=== PATIENT | male | born 1950 | race Caucasian/White ===

== ENCOUNTER → 2016-09-08 | Day surgery (SDC) | payer MEDICAID ==
[~2016-09-08] MED LIST: ACIDOPHILUS PO; BLOOD PRESSURE MED; CEPHALEXIN500 M1 PO; GLUCAGON EMERGEN1 M1 IM; LANTUS100 U/ML; LANTUS100 U/ML SQ; LISINOPRIL5 MG PO; MIRALAX17 GM/DOSE PO; NOVOLIN R100 U/ML; NOVOLOG 100U100 U/M1; NOVOLOG 100U100 U/M1 SC; NOVOLOG 100U100 U/ML SC; PREDNISONE20 MG PO; PRINIVIL5 MG PO; PROVENTIL0.09 MG/A1 IH; TRESIBA FL100 UNIT/1 SQ; TRIAMCINOLONE A15 GM TP; VIBRAMYCIN100 MG PO; WARFARIN2 MG
== END ==
LOC: MSO 14:20
DX: K30 Functional dyspepsia (principal); R68.81 Early satiety; Z79.01 Long term (current) use of anticoagulants; Z86.711 Personal history of pulmonary embolism; J44.9 Chronic obstructive pulmonary disease, unspecified; J45.909 Unspecified asthma, uncomplicated; F17.210 Nicotine dependence, cigarettes, uncomplicated; K21.9 Gastro-esophageal reflux disease without esophagitis; K29.70 Gastritis, unspecified, without bleeding; B37.81 Candidal esophagitis
CPT/HCPCS: 00740; J7030

== ENCOUNTER 2016-11-13 12:40 | Emergency (ER) | payer MEDICAID ==
[~2016-11-13 12:40] MED LIST changes: -GLUCAGON EMERGEN1 M1 IM; -LISINOPRIL5 MG PO; -NOVOLOG 100U100 U/ML SC
[2016-11-13] MEDS ORDERED: NOVOLOG 100U100 U/ML SC (13:28)
[2016-11-13] MEDS ORDERED: LISINOPRIL5 MG PO (13:29)
[2016-11-13] MEDS ORDERED: GLUCAGON EMERGEN1 M1 IM (13:30)
== END 2016-11-13 17:26 | disposition home or self-care (01) ==
LOC: ED 12:40
DX: E11.649 Type 2 diabetes mellitus with hypoglycemia without coma (principal); Z79.4 Long term (current) use of insulin

== ENCOUNTER → 2017-04-25 | Outpatient (CLI) | payer MEDICAID ==
[2016-11-13 17:26] VITALS: BP 140/60
[~2017-04-25] MED LIST changes: +GLUCAGON EMERGEN1 M1 IM; +LISINOPRIL5 MG PO; +NOVOLOG 100U100 U/ML SC
== END ==
LOC: LAB 09:03
DX: Z79.899 Other long term (current) drug therapy (principal)

== ENCOUNTER 2017-07-02 09:00 | Outpatient (RCR) | payer MEDICAID ==
[2016-11-13 17:26] VITALS: BP 140/60
== END 2017-07-02 09:30 | disposition still patient (30) ==
LOC: PT 09:00
DX: M54.5 Low back pain (principal)
CPT/HCPCS: G0283-GP

== ENCOUNTER 2017-07-25 13:01 | Emergency (ER) | payer MEDICAID ==
[~2017-07-25] VITALS: Wt 47.7 kg
[2017-07-25 13:36] LABS: HEMATOCRIT 40.5 % (42.0-52.0); HEMOGLOBIN 14.1 g/dL (13.5-18.0); MEAN CELL VOLUME 88 fl (78-100); MEAN CORPUSCULAR HEMOGLOBIN 31 pg (27-31); MEAN CORPUSCULAR HGB CONC 35 g/dL (33-37); PLATELET COUNT 197 K/mm3 (130-400); RED BLOOD COUNT 4.59 M/mm3 (4.20-5.60); RED CELL DISTRIBUTION WIDTH 15.1 % (11.5-14.5)
[2017-07-25 13:44] LABS: PROTHROMBIN TIME 21.8 SECONDS (9.0-12.0)
[2017-07-25 13:46] LABS: ALBUMIN 4.3 g/dL (3.5-5.0); BUN/CREATININE RATIO 22.8 (6.0-26.0); CALCIUM 9.3 mg/dL (8.4-10.2); POTASSIUM 4.1 mmol/L (3.6-5.0); TOTAL BILIRUBIN 0.7 mg/dL (0.2-1.3); TOTAL PROTEIN 7.1 g/dL (6.3-8.2)
[2017-07-25 13:57] LABS: BAND 9 % (0-10); LYMPHOCYTE 8 % (20-51); MONOCYTE 7 % (3-10); NEUTROPHILS 76 % (42-75)
[2017-07-25 16:21] VITALS: BP 127/64
== END 2017-07-25 16:22 | disposition home or self-care (01) ==
LOC: ED 13:01
PROVIDERS: Family Medicine
DX: S06.0X9A Concussion with loss of consciousness of unspecified duration, initial encounter (principal); E10.649 Type 1 diabetes mellitus with hypoglycemia without coma; E10.42 Type 1 diabetes mellitus with diabetic polyneuropathy; Z79.4 Long term (current) use of insulin; S00.81XA Abrasion of other part of head, initial encounter; W19.XXXA Unspecified fall, initial encounter; S00.83XA Contusion of other part of head, initial encounter; Z86.718 Personal history of other venous thrombosis and embolism; Z86.711 Personal history of pulmonary embolism; Z79.01 Long term (current) use of anticoagulants; F17.200 Nicotine dependence, unspecified, uncomplicated

== ENCOUNTER 2018-03-08 16:48 | Emergency (ER) | payer MEDICAID ==
[2018-03-08 18:00] LABS: HEMATOCRIT 44.8 % (42.0-52.0); HEMOGLOBIN 14.7 g/dL (13.5-18.0); MEAN CELL VOLUME 79 fl (78-100); MEAN CORPUSCULAR HEMOGLOBIN 26 pg (27-31); MEAN CORPUSCULAR HGB CONC 33 g/dL (33-37); MEAN PLATELET VOLUME 8.1 fl (7.4-10.4); PLATELET COUNT 215 K/mm3 (130-400); RED BLOOD COUNT 5.65 M/mm3 (4.20-5.60); RED CELL DISTRIBUTION WIDTH 14.9 % (11.5-14.5); WHITE BLOOD COUNT 5.6 K/mm3 (4.8-10.8)
[2018-03-08 18:05] LABS: ALBUMIN 4.3 g/dL (3.5-5.0); BUN/CREATININE RATIO 14.6 (6.0-26.0); POTASSIUM 3.5 mmol/L (3.6-5.0); TOTAL BILIRUBIN 0.6 mg/dL (0.2-1.3); TOTAL PROTEIN 8.3 g/dL (6.3-8.2)
[2018-03-08 18:37] LABS: LYMPHOCYTE 28 % (20-51); MONOCYTE 12 % (3-10); NEUTROPHILS 60 % (42-75)
[2018-03-08 18:39] LABS: PH-URINE 5.5 (5.0 - 8.0); URINE APPEARANCE CLEAR; URINE BILIRUBIN NEGATIVE (NEGATIVE); URINE BLOOD NEGATIVE (NEGATIVE); URINE COLOR YELLOW; URINE GLUCOSE NEGATIVE (NEGATIVE); URINE KETONE 1+ (NEGATIVE); URINE LEUKOCYTE ESTERASE NEGATIVE (NEGATIVE); URINE NITRATE NEGATIVE (NEGATIVE); URINE PROTEIN(semi-quant) TRACE mg/dL (NEGATIVE); URINE UROBILINOGEN NORMAL (NORMAL)
[2018-03-08 18:40] LABS: URINE WBC 0-1 /hpf (0-3)
[2018-03-08 20:56] LABS: PROTHROMBIN TIME 47.8 SECONDS (9.0-12.0)
[2018-03-08 23:28] VITALS: BP 156/67
== END 2018-03-08 23:28 | disposition home or self-care (01) ==
LOC: ED 16:48
PROVIDERS: Nurse Practitioner Family
DX: K59.00 Constipation, unspecified (principal); M54.6 Pain in thoracic spine; E10.9 Type 1 diabetes mellitus without complications; Z79.4 Long term (current) use of insulin; I10 Essential (primary) hypertension; J44.9 Chronic obstructive pulmonary disease, unspecified; F17.210 Nicotine dependence, cigarettes, uncomplicated; K21.9 Gastro-esophageal reflux disease without esophagitis; Z86.718 Personal history of other venous thrombosis and embolism; Z79.01 Long term (current) use of anticoagulants
CPT/HCPCS: J2270; J2405; J7030

== ENCOUNTER → 2018-03-31 | Outpatient (CLI) | payer MEDICAID ==
[2018-03-08 23:28] VITALS: BP 156/67
== END ==
LOC: RAD 09:59
DX: Z13.6 Encounter for screening for cardiovascular disorders (principal); I70.0 Atherosclerosis of aorta

== ENCOUNTER 2018-07-01 14:48 | Emergency (ER) | payer MEDICAID ==
[~2018-07-01] VITALS: Ht 165.1 cm; Wt 45.9 kg
[2018-07-01 15:21] LABS: HEMATOCRIT 44.4 % (42.0-52.0); HEMOGLOBIN 14.6 g/dL (13.5-18.0); LYMPH# 1.1 (1.50-4.00); MEAN CELL VOLUME 78 fl (78-100); MEAN CORPUSCULAR HEMOGLOBIN 26 pg (27-31); MEAN CORPUSCULAR HGB CONC 33 g/dL (33-37); MONO # 0.6 (0.20-0.80); NEU # 3.7 (1.40-6.50); PLATELET COUNT 282 K/mm3 (130-400); RED BLOOD COUNT 5.73 M/mm3 (4.20-5.60); RED CELL DISTRIBUTION WIDTH 17.4 % (11.5-14.5); WHITE BLOOD COUNT 5.5 K/mm3 (4.8-10.8)
[2018-07-01 15:29] LABS: ALBUMIN 4.6 g/dL (3.5-5.0); CALCIUM 9.5 mg/dL (8.4-10.2); POTASSIUM 4.1 mmol/L (3.6-5.0); TOTAL BILIRUBIN 0.3 mg/dL (0.2-1.3); TOTAL PROTEIN 7.9 g/dL (6.3-8.2)
[2018-07-01 15:36] LABS: PROTHROMBIN TIME 36.3 SECONDS (9.0-12.0)
[2018-07-01] MEDS ORDERED: JANTOVEN2 MG PO (16:31)
[2018-07-01] MEDS ORDERED: ATORVASTATIN CA20 MG PO (16:32)
[2018-07-01 18:40] VITALS: BP 156/85
== END 2018-07-01 18:51 | disposition home or self-care (01) ==
LOC: ED 14:48
PROVIDERS: Nurse Practitioner Primary Care
DX: E11.649 Type 2 diabetes mellitus with hypoglycemia without coma (principal); S00.83XA Contusion of other part of head, initial encounter; S00.81XA Abrasion of other part of head, initial encounter; W19.XXXA Unspecified fall, initial encounter; Y92.009 Unspecified place in unspecified non-institutional (private) residence as the place of occurrence of the external cause; Z79.01 Long term (current) use of anticoagulants; Z79.4 Long term (current) use of insulin; Z79.899 Other long term (current) drug therapy; I10 Essential (primary) hypertension; Z86.718 Personal history of other venous thrombosis and embolism; F17.200 Nicotine dependence, unspecified, uncomplicated
CPT/HCPCS: J7042

== ENCOUNTER 2018-07-08 20:55 | Emergency (ER) | payer MEDICAID ==
[~2018-07-08] VITALS: Ht 165.1 cm; Wt 45.9 kg
[~2018-07-08 20:55] MED LIST changes: +ATORVASTATIN CA20 MG PO; +JANTOVEN2 MG PO
[2018-07-08 21:39] LABS: HEMOGLOBIN 13.1 g/dL (13.5-18.0); LYMPH# 1.2 (1.50-4.00); MEAN CELL VOLUME 78 fl (78-100); MEAN CORPUSCULAR HEMOGLOBIN 26 pg (27-31); MEAN CORPUSCULAR HGB CONC 34 g/dL (33-37); MEAN PLATELET VOLUME 7.7 fl (7.4-10.4); MONO # 0.8 (0.20-0.80); NEU # 6.6 (1.40-6.50); PLATELET COUNT 211 K/mm3 (130-400); RED BLOOD COUNT 5.03 M/mm3 (4.20-5.60); RED CELL DISTRIBUTION WIDTH 16.9 % (11.5-14.5); WHITE BLOOD COUNT 8.6 K/mm3 (4.8-10.8)
[2018-07-08 21:49] LABS: CALCIUM 8.9 mg/dL (8.4-10.2); POTASSIUM 3.8 mmol/L (3.6-5.0)
[2018-07-08 21:50] LABS: PROTHROMBIN TIME 18.9 SECONDS (9.0-12.0)
[2018-07-08] MEDS ORDERED: COUMADIN 4MG4 MG/TAB PO (21:52)
[2018-07-09] MEDS ORDERED: NORCO 325 MG-51 TA1 PO (01:20)
[2018-07-09 01:40] VITALS: BP 160/70
== END 2018-07-09 01:40 | disposition home or self-care (01) ==
LOC: ED 20:55
PROVIDERS: Family Medicine
DX: S80.02XA Contusion of left knee, initial encounter (principal); S89.82XA Other specified injuries of left lower leg, initial encounter; S80.212A Abrasion, left knee, initial encounter; E10.649 Type 1 diabetes mellitus with hypoglycemia without coma; Z79.4 Long term (current) use of insulin; Z79.01 Long term (current) use of anticoagulants; Z79.899 Other long term (current) drug therapy; Z86.718 Personal history of other venous thrombosis and embolism; E10.42 Type 1 diabetes mellitus with diabetic polyneuropathy; W19.XXXA Unspecified fall, initial encounter; Y92.009 Unspecified place in unspecified non-institutional (private) residence as the place of occurrence of the external cause

== ENCOUNTER → 2018-07-21 | Outpatient (CLI) | payer MEDICAID ==
[2018-07-09 01:40] VITALS: BP 160/70
[~2018-07-21] MED LIST changes: +COUMADIN 4MG4 MG/TAB PO; +NORCO 325 MG-51 TA1 PO
== END ==
LOC: RAD 09:00
DX: J84.10 Pulmonary fibrosis, unspecified (principal); R91.8 Other nonspecific abnormal finding of lung field
CPT/HCPCS: Q9967

== ENCOUNTER → 2018-08-01 | Outpatient (CLI) | payer MEDICAID ==
[2018-07-09 01:40] VITALS: BP 160/70
== END ==
LOC: RAD 15:19
DX: S82.002A Unspecified fracture of left patella, initial encounter for closed fracture (principal); S80.02XA Contusion of left knee, initial encounter; M17.12 Unilateral primary osteoarthritis, left knee; R60.0 Localized edema

== ENCOUNTER 2018-08-10 12:57 | Outpatient (RCR) | payer MEDICAID | END 2018-08-10 13:30 | disposition home or self-care (01) | LOC: PT 12:57 | DX: S82.002D Unspecified fracture of left patella, subsequent encounter for closed fracture with routine healing (principal); R53.81 Other malaise; Z91.81 History of falling ==